=== PATIENT | female | born 1985 | race Caucasian/White ===

== ENCOUNTER 2017-11-30 19:12 | Emergency (ER) | payer OTHER ==
[2017-11-30 20:26] LABS: BASOPHILS 0.3 % (0-2); EOSINOPHILS 2.3 % (0-7); HEMATOCRIT 39.2 % (36.0-48.0); HEMOGLOBIN 12.8 g/dL (12-16); IMMATURE GRANULOCYTES 0.3 % (0-5); LYMPHOCYTES 37.2 % (15-50); MCH 29.3 pg (26.0-34.0); MCHC 32.7 g/dL (31.0-37.0); MCV 89.7 fL (80.0-100.0); MEAN PLATELET VOLUME 10.9 fL (7.4-10.4); MONOCYTES 17.3 % (2-11); NEUTROPHILS 42.6 % (40-80); PLATELET COUNT 211 10x3/uL (130-400); RBC 4.37 10x6/uL (4.00-5.40); RDW 14.1 % (11.5-14.5); WBC 7.4 10x3/uL (4.8-10.8)
[2017-11-30 20:40] LABS: ALBUMIN 3.2 g/dL (3.4-5.0); ALKALINE PHOSPHATASE 157 U/L (46-116); ALT (SGPT) 72 U/L (10-68); CALC OSMOLALITY 278 mosm/kg (275-300); CALCIUM 8.9 mg/dL (8.5-10.1); CARBON DIOXIDE 26.6 mmol/L (21.0-32.0); CHLORIDE - SERUM 106 mmol/L (98-107); CREATININE - SERUM 0.8 mg/dL (0.6-1.3); GLUCOSE 107 mg/dL (74-106); SODIUM 139 mmol/L (136-145); UREA NITROGEN 15 mg/dL (7-18); eGFR NON AFRICAN AMERICAN 87 mL/min (90-120)
[2017-11-30 20:47] LABS: PRO BNP 588 pg/mL (0-125)
[2017-11-30 20:49] LABS: TROPONIN-I < 0.017 ng/mL (0.000-0.060)
== END 2017-11-30 21:22 | disposition home or self-care (01) ==
LOC: D.ER 19:12
PROVIDERS: Family Medicine
DX: M94.0 Chondrocostal junction syndrome [Tietze] (principal); F17.200 Nicotine dependence, unspecified, uncomplicated